=== PATIENT | female | born 1995 | race Caucasian/White ===

== ENCOUNTER 2018-04-14 18:46 | Emergency (ER) | payer MEDICAID ==
--- NOTE | 2018-04-14 19:01 | Emergency Department Record ---
History of Present Illness - General Chief complaint: Dental Stated complaint: DENTAL PAIN Time Seen by Provider: 04/14/18 18:58 Source: Patient Mode of Arrival: Ambulatory Limitations: No limitations - History of Present Illness Initial comments: 22 yo female presents to ED for evaluation of painful, inflamed gingiva tissue for the past 1 day. Patient denies previous history of her symptoms, denies fevers, chills, or recent illness. Patient does however report numerous dental caries and extractions, has a dentist that she sees at [facility]. Patient reports "I need an antibiotic to improve my symptoms". Patient denies health problems at her baseline. MD complaint: Tooth pain Onset/Timin -: Minutes(s) Severity: Moderate Severity scale (1-10): >10 Quality: Aching Consistency: Constant, Intermittent Improves with: None Worsens with: Eating, Movement, Swallowing Context- Dental: History of dental caries Associated Symptoms: Gum swelling - Related Data Previous Rx's Medication Instructions Recorded Clindamycin HCl [Cleocin HCl] 300 mg PO QID #28 capsule 04/14/18 Naproxen [Naprosyn] 500 mg PO Q12H #30 tab. 04/14/18 Allergies Allergy/AdvReac Type Severity Reaction Status Date / Time amoxicillin Allergy DIFFICULTY Verified 04/14/18 18:55 BREATHING Penicillins Allergy DIFFICULTY Verified 04/14/18 18:55 BREATHING Travel Screening - Travel/Exposure Within Last 30 Days Have you traveled within the last 30 days?: No - Travel/Exposure Within Last Year Have you traveled outside the [place] in the last year?: No - Additonal Travel Details Have you been exposed to anyone with a communicable illness?: No - Travel Symptoms Symptom Screening: None Review of Systems Constitutional: Denies: Chills, Fever, Malaise, Night sweats Eyes: Denies: Eye discharge, Eye pain ENT: Reports: Dental pain. Denies: Congestion, Ear pain, Epistaxis Respiratory: Denies: Cough, Dyspnea Cardiovascular: Denies: Chest pain, Dyspnea on exertion Endocrine: Denies: Fatigue, Heat or cold intolerance Gastrointestinal: Denies: Abdominal pain, Nausea, Vomiting Genitourinary: Denies: Incontinence, Retention Musculoskeletal: Denies: Arthralgia, Back pain Skin: Denies: Bruising, Change in color Neurological: Denies: Abnormal gait, Confusion, Headache, Tingling Psychiatric: Denies: Anxiety Hematological/Lymphatic: Denies: Anemia, Blood Clots Past Medical History - SOCIAL HISTORY Smoking Status: Current every day smoker Alcohol Use: None Drug Use Detail:: Marijuana - RESPIRATORY Hx Respiratory Disorders: No - CARDIOVASCULAR Hx Cardio Disorders: No - NEURO Hx Neuro Disorders: No - GI Hx GI Disorders: No - Hx Genitourinary Disorders: No - ENDOCRINE Hx Endocrine Disorders: No - MUSCULOSKELETAL Hx Musculoskeletal Disorders: No - PSYCH Hx Psych Problems: No - HEMATOLOGY/ONCOLOGY Hx Anemia: No Family Medical History Any Significant Family History?: Yes Physical Exam - General General Appearance: Alert, Oriented x3, Cooperative, Mild distress Limitations: No limitations - Head Head exam: Atraumatic, Normocephalic, Normal inspection Head exam detail: negative: Abrasion, Contusion, Rubalcava's sign, General tenderness, Hematoma, Laceration - Eye Eye exam: Normal appearance. negative: Conjunctival injection, Periorbital swelling, Periorbital tenderness, Scleral icterus - ENT Ear exam: negative: Auricular hematoma, Auricular trauma Nasal Exam: negative: Active bleeding, Discharge, Dried blood, Foreign body, Sinus tenderness Mouth exam: negative: Drooling, Laceration, Muffled voice, Tongue elevation Teeth exam: Dental caries, Gingival enlargement, Other (MIld erythema and mild hypertrophy/inflammation of the lower jaw anterior gingiva on examination.). negative: Dental tenderness # Image of Mouth/Teeth: 1 - erythema, mild hypertrophy, appears inflamed on examination - Neck Neck exam: Normal inspection. negative: Tenderness, Thyromegaly - Respiratory Respiratory exam: Normal lung sounds bilaterally. negative: Respiratory distress, Rhonchi, Stridor, Wheezes - Cardiovascular Cardiovascular Exam: Regular rate, Normal rhythm, Normal heart sounds - GI/Abdominal GI/Abdominal exam: Soft. negative: Distended, Rebound, Rigid, Tenderness - Rectal Rectal exam: Deferred - exam: Deferred - Extremities Extremities exam: Normal inspection. negative: Calf tenderness, Pedal edema, Tenderness - Back Back exam: Denies: CVA tenderness (R), CVA tenderness (L) - Neurological Neurological exam: Alert, Normal gait, Oriented X3 - Psychiatric Psychiatric exam: Normal affect, Normal mood - Skin Skin exam: Normal color. negative: Abrasion Type of lesion: negative: abrasion Course Vital Signs 04/14/18 18:51 Temperature 97.8 F Pulse Rate [ 93 H Pulse Ox Probe] Respiratory 17 Rate Blood Pressure 115/79 [Left Arm] Pulse Ox 100 - Reevaluation(s) Reevaluation #1: 04/14/18 19:07 Patient was seen and examined, will treat for inflamed/possibly infected gingival on examination with Clindamycin (allergic to PCN) and Naprosyn for her pain symptoms. Patient was instructed to follow-up with her dentist in 1-3 days for further evaluation as well. Disposition Disposition: Discharge Clinical Impression: Acute gingival inflammation Disposition: Home, Self-Care Condition: (2) Stable Instructions: Cavity Preventive (For the teeth or gums) Additional Instructions: Return to ED if your symptoms worsen or if you have any concerns. Clindamicin and Naprosyn as directed. Follow-up with your dentist in 1-3 days as directed. Prescriptions: Clindamycin HCl [Cleocin HCl] 300 mg PO QID #28 capsule Naproxen [Naprosyn] 500 mg PO Q12H #30 tab.dr Forms: Patient Portal Access Time of Disposition: 19:01 Quality - Quality Measures Quality Measures: N/A - Blood Pressure Screening Does Patient Have Any of the Following: No Blood Pressure Classification: Normal BP Reading Systolic Measurement: 115 Diastolic Measurement: 79 Screening for High Blood Pressure: < Normal BP, F/U Not Required > [G8783]
== END 2018-04-14 19:08 | disposition home or self-care (01) ==
LOC: ER 18:46
DX: K05.10 Chronic gingivitis, plaque induced (principal)
CPT/HCPCS: 99282